=== PATIENT | male | born 1990 ===

== ENCOUNTER 2024-05-16 13:14 | Inpatient (IN) | payer OTHER ==
[~2024-05-16] VITALS: Ht 160 cm; Wt 72.7 kg
[2024-05-16 15:26] LABS: BASOPHILS % (AUTO) 0.2 % (0.0-2.0); EOSINOPHILS % (AUTO) 0.1 % (1.0-6.0); HEMATOCRIT 43.5 % (41-53); HEMOGLOBIN 14.7 g/dL (13.5-17.5); LYMPHOCYTES # (AUTO) 2.1 K/uL (1.0-4.8); LYMPHOCYTES % (AUTO) 22.4 % (22.0-44.0); MEAN CORPUSCULAR HEMOGLOBIN 27.1 pg (26.0-34.0); MEAN CORPUSCULAR HGB CONC 33.9 G/dL (31.0-37.0); MEAN CORPUSCULAR VOLUME 80 fL (80-100); MONOCYTES # (AUTO) 0.8 K/uL (0.1-1.0); MONOCYTES % (AUTO) 8.8 % (2.0-9.0); NEUTROPHILS # (AUTO) 6.3 K/uL (1.8-7.7); NEUTROPHILS % (AUTO) 68.5 % (40.0-70.0); PLATELET COUNT (AUTO) 374 K/uL (150-450); RED BLOOD CELL COUNT(AUTO) 5.44 MIL/uL (4.50-5.90); RED CELL DISTRIBUTION WIDTH 16.2 % (11.5-14.5); WHITE BLOOD COUNT (AUTO) 9.3 K/uL (4.5-11.0)
[2024-05-16 15:28] LABS: ANION GAP 10 mmol/L (8-16); CALCIUM, TOTAL 9.5 mg/dL (8.8-10.5); CARBON DIOXIDE 27 mmol/L (22-29); CHLORIDE 100 mmol/L (98-107); CREATININE 0.71 mg/dL (0.60-1.30); GLOMERULAR FILTR. RATE CALC > 60 mL/min (>60); GLUCOSE,RANDOM 96 mg/dL (70-110); POTASSIUM 3.3 mmol/L (3.5-5.1); SODIUM SERUM 137 mmol/L (136-145); UREA NITROGEN, BLOOD 7 mg/dL (7-18)
[2024-05-16 15:37] LABS: LACTIC ACID 0.9 mmol/L (0.4-2.0)
[2024-05-16] MEDS: VANCOMYCIN 1.25 GM/WATER(PEG) 250 ML IV ONE (15:50)
[2024-05-16] MEDS ORDERED: MAGNESIUM HYDROXIDE SUSPENSION 30 ML UDCUP PO PRN (16:30)
[2024-05-16] MEDS ORDERED: ONDANSETRON HCL 4 MG/2 ML VIAL IVP PRN (16:30)
[2024-05-16] MEDS ORDERED: BISACODYL 10 MG RECTAL RECTAL SUPPOSITORY PR PRN (16:30)
[2024-05-16] MEDS: MORPHINE SULFATE 2 MG/ML SYRINGE IVP PRN (16:40)
[2024-05-16 18:40] VITALS: BP 109/72; PULSE 77; RESP 18; TEMP 98.4; O2SAT 100
[2024-05-16 20:04] VITALS: BP 117/67; PULSE 72; RESP 20; TEMP 97.9; O2SAT 96
[2024-05-16] MEDS: HYDROCODONE/ACETAMINOPHEN 5-325 MG TABLET PO PRN (20:13)
[2024-05-16] MEDS: DOCUSATE SODIUM 100 MG CAPSULE PO SCH (20:13)
[2024-05-16] MEDS ORDERED: SODIUM CHLORIDE 0.9% 500 ML IV ONE (23:30)
[2024-05-16] MEDS: HEPARIN SODIUM,PORCINE 5,000 UNITS/ML VIAL SQ SCH (23:38)
[2024-05-16] MEDS: VANCOMYCIN 1GM/WATER(PEG/NADA) 200 ML IV SCH (23:38)
[2024-05-17 05:27] VITALS: BP 101/56; PULSE 84; RESP 18; TEMP 97.5; O2SAT 100
[2024-05-17 08:13] VITALS: BP 107/60; PULSE 83; RESP 18; TEMP 98.2; O2SAT 99
[2024-05-17 08:24] LABS: ANION GAP 9 mmol/L (8-16); CALCIUM, TOTAL 9.3 mg/dL (8.8-10.5); CARBON DIOXIDE 24 mmol/L (22-29); CHLORIDE 102 mmol/L (98-107); CREATININE 0.72 mg/dL (0.60-1.30); GLOMERULAR FILTR. RATE CALC > 60 mL/min (>60); GLUCOSE,RANDOM 112 mg/dL (70-110); POTASSIUM 3.4 mmol/L (3.5-5.1); SODIUM SERUM 135 mmol/L (136-145); UREA NITROGEN, BLOOD 8 mg/dL (7-18)
[2024-05-17] MEDS: PANTOPRAZOLE SODIUM 40 MG DR TABLET PO SCH (08:32)
[2024-05-17] MEDS ORDERED: POTASSIUM CHL 10 MEQ/WATER 50 ML IV PRN (11:15)
[2024-05-17] MEDS: POTASSIUM CHLORIDE 20 MEQ ER TABLET PO PRN (13:02)
[2024-05-17 16:00] VITALS: BP 127/70; PULSE 67; RESP 18; TEMP 98.5; O2SAT 99
[2024-05-17 20:23] VITALS: BP 103/59; PULSE 61; RESP 18; TEMP 98.2; O2SAT 98
[2024-05-18 05:13] VITALS: BP 108/61; PULSE 77; RESP 18; TEMP 98.1; O2SAT 99
[2024-05-18 07:25] LABS: ANION GAP 11 mmol/L (8-16); CARBON DIOXIDE 22 mmol/L (22-29); CHLORIDE 101 mmol/L (98-107); CREATININE 0.73 mg/dL (0.60-1.30); GLOMERULAR FILTR. RATE CALC > 60 mL/min (>60); GLUCOSE,RANDOM 148 mg/dL (70-110); POTASSIUM 3.2 mmol/L (3.5-5.1); SODIUM SERUM 134 mmol/L (136-145); UREA NITROGEN, BLOOD 6 mg/dL (7-18); VANCOMYCIN,RANDOM 12.6 mcg/mL (25.0-50.0)
[2024-05-18 08:29] VITALS: BP 105/56; PULSE 81; RESP 18; TEMP 97.9; O2SAT 99
[2024-05-18 16:10] VITALS: BP 95/43; PULSE 65; RESP 18; TEMP 97.5; O2SAT 98
[2024-05-18] MEDS: VANCOMYCIN 1.25 GM/WATER(PEG) 250 ML IV SCH (16:17)
[2024-05-18 21:20] VITALS: BP 113/57; PULSE 65; RESP 18; TEMP 98.6; O2SAT 98
[2024-05-18] MEDS: ZOLPIDEM TARTRATE 5 MG TABLET PO PRN (23:42)
[2024-05-18] MEDS: ACETAMINOPHEN 325 MG TABLET PO PRN (23:43)
[2024-05-19 06:16] VITALS: BP 102/57; PULSE 71; RESP 18; TEMP 98.3; O2SAT 100
[2024-05-19 07:30] LABS: ANION GAP 9 mmol/L (8-16); CALCIUM, TOTAL 9.1 mg/dL (8.8-10.5); CARBON DIOXIDE 24 mmol/L (22-29); CHLORIDE 101 mmol/L (98-107); CREATININE 0.54 mg/dL (0.60-1.30); GLOMERULAR FILTR. RATE CALC > 60 mL/min (>60); GLUCOSE,RANDOM 93 mg/dL (70-110); POTASSIUM 3.7 mmol/L (3.5-5.1); SODIUM SERUM 134 mmol/L (136-145); UREA NITROGEN, BLOOD 6 mg/dL (7-18)
[2024-05-19 20:25] VITALS: BP 101/57; PULSE 74; RESP 18; TEMP 98.4; O2SAT 97
[2024-05-20 07:34] LABS: ANION GAP 10 mmol/L (8-16); CALCIUM, TOTAL 9.1 mg/dL (8.8-10.5); CARBON DIOXIDE 24 mmol/L (22-29); CHLORIDE 100 mmol/L (98-107); CREATININE 0.63 mg/dL (0.60-1.30); GLOMERULAR FILTR. RATE CALC > 60 mL/min (>60); GLUCOSE,RANDOM 93 mg/dL (70-110); POTASSIUM 3.8 mmol/L (3.5-5.1); SODIUM SERUM 134 mmol/L (136-145); UREA NITROGEN, BLOOD 7 mg/dL (7-18)
[2024-05-20 08:35] VITALS: BP 109/62; PULSE 72; RESP 20; TEMP 98.2; O2SAT 99
[2024-05-20] MEDS ORDERED: SODIUM CL IRRIG SOLN BOTTLE 250 ML IRRIG ONE (16:45)
[2024-05-20 20:09] VITALS: BP 129/62; PULSE 62; RESP 18; TEMP 97.9; O2SAT 96
[2024-05-21 04:30] VITALS: BP 108/60; PULSE 79; RESP 18; TEMP 98; O2SAT 98
[2024-05-21 07:37] VITALS: BP 121/68; PULSE 84; RESP 18; TEMP 98.1; O2SAT 99
[2024-05-21 09:37] LABS: CALCIUM, TOTAL 9.3 mg/dL (8.8-10.5); CARBON DIOXIDE 25 mmol/L (22-29); CHLORIDE 101 mmol/L (98-107); CREATININE 0.71 mg/dL (0.60-1.30); GLOMERULAR FILTR. RATE CALC > 60 mL/min (>60); GLUCOSE,RANDOM 93 mg/dL (70-110); UREA NITROGEN, BLOOD 9 mg/dL (7-18); VANCOMYCIN,RANDOM 14.3 mcg/mL (25.0-50.0)
[2024-05-21 09:41] LABS: ANION GAP 9 mmol/L (8-16); POTASSIUM 3.7 mmol/L (3.5-5.1); SODIUM SERUM 135 mmol/L (136-145)
[2024-05-21] MEDS: HydrOXYzine HCL 25 MG TABLET PO PRN ×2 (12:44→23:26)
[2024-05-21] MEDS: VANCOMYCIN 1GM/WATER(PEG/NADA) 200 ML IV SCH (16:21)
[2024-05-21 21:02] VITALS: BP 98/50; PULSE 81; RESP 16; TEMP 98; O2SAT 99
[2024-05-21 23:29] VITALS: BP 119/73; PULSE 85; RESP 18; TEMP 97.8; O2SAT 99
[2024-05-22 08:01] VITALS: BP 130/70; PULSE 90; RESP 18; TEMP 98.2; O2SAT 100
[2024-05-22 08:20] LABS: ANION GAP 8 mmol/L (8-16); CALCIUM, TOTAL 9.1 mg/dL (8.8-10.5); CARBON DIOXIDE 25 mmol/L (22-29); CHLORIDE 100 mmol/L (98-107); GLOMERULAR FILTR. RATE CALC > 60 mL/min (>60); GLUCOSE,RANDOM 88 mg/dL (70-110); POTASSIUM 3.8 mmol/L (3.5-5.1); SODIUM SERUM 133 mmol/L (136-145); UREA NITROGEN, BLOOD 8 mg/dL (7-18)
[2024-05-22] MEDS ORDERED: ETHYL ALCOHOL 62% ANTISEPTIC NASAL SANITIZER 0.6 ML AMPUL NASAL SCH (14:30)
[2024-05-22] MEDS ORDERED: SODIUM CHLORIDE 0.9% 500 ML IV ONE (17:13)
[2024-05-22 19:47] VITALS: BP 109/60; PULSE 83; RESP 20; TEMP 98.6; O2SAT 97
[2024-05-22] MEDS: ZOLPIDEM TARTRATE 10 MG TABLET PO PRN (21:05)
[2024-05-23 05:12] VITALS: BP 97/58; PULSE 95; RESP 18; TEMP 98.8; O2SAT 97
[2024-05-23 08:04] LABS: ANION GAP 7 mmol/L (8-16); CARBON DIOXIDE 25 mmol/L (22-29); CHLORIDE 101 mmol/L (98-107); CREATININE 0.57 mg/dL (0.60-1.30); GLOMERULAR FILTR. RATE CALC > 60 mL/min (>60); GLUCOSE,RANDOM 99 mg/dL (70-110); POTASSIUM 3.8 mmol/L (3.5-5.1); SODIUM SERUM 133 mmol/L (136-145); UREA NITROGEN, BLOOD 10 mg/dL (7-18)
[2024-05-23 08:54] VITALS: BP 100/59; PULSE 81; RESP 20; TEMP 98.4; O2SAT 99
[2024-05-23 19:44] VITALS: BP 109/53; PULSE 83; RESP 20; TEMP 98.3; O2SAT 98
[2024-05-24 05:15] VITALS: BP 108/64; PULSE 77; RESP 19; TEMP 97.5; O2SAT 96
[2024-05-24 07:44] LABS: ANION GAP 9 mmol/L (8-16); CALCIUM, TOTAL 8.9 mg/dL (8.8-10.5); CARBON DIOXIDE 25 mmol/L (22-29); CHLORIDE 101 mmol/L (98-107); CREATININE 0.62 mg/dL (0.60-1.30); GLOMERULAR FILTR. RATE CALC > 60 mL/min (>60); GLUCOSE,RANDOM 89 mg/dL (70-110); POTASSIUM 3.6 mmol/L (3.5-5.1); SODIUM SERUM 135 mmol/L (136-145); UREA NITROGEN, BLOOD 9 mg/dL (7-18); VANCOMYCIN,RANDOM 16.7 mcg/mL (25.0-50.0)
[2024-05-24 07:59] VITALS: BP 124/65; PULSE 85; RESP 18; TEMP 98.1; O2SAT 97
[2024-05-24] MEDS ORDERED: HEPA500018 SQ (18:12)
[2024-05-24] MEDS ORDERED: MAGN-169 PO (18:12)
[2024-05-24] MEDS ORDERED: HYDR-4062 PO (18:12)
[2024-05-24] MEDS ORDERED: ACET-2247 PO (18:12)
[2024-05-24] MEDS ORDERED: MORP2CAR IVP (18:12)
[2024-05-24] MEDS ORDERED: VANC250C20 IV (18:12)
[2024-05-24] MEDS ORDERED: BISA10SU11 PR (18:12)
[2024-05-24] MEDS ORDERED: DOCU-119 PO (18:12)
[2024-05-24] MEDS ORDERED: PANT-31 PO (18:12)
[2024-05-24] MEDS ORDERED: ONDA4VIA60 IVP (18:12)
[2024-05-24] MEDS ORDERED: HYDR-4527 PO (18:12)
== END 2024-05-24 19:09 | DRG 603 ==
LOC: EMS 13:14 → EDH 16:18 → 6S 18:32
PROVIDERS: ADMIT Internal Medicine; ATTEND Internal Medicine
PROC: 05HB33Z Insertion of Infusion Device into Right Basilic Vein, Percutaneous Approach (ICD-10-PCS; principal; 2024-05-20)
PROC: B54MZZA Ultrasonography of Right Upper Extremity Veins, Guidance (ICD-10-PCS; 2024-05-20)
DX: L03.115 Cellulitis of right lower limb (principal); L03.116 Cellulitis of left lower limb; E87.6 Hypokalemia; S81.802A Unspecified open wound, left lower leg, initial encounter; S81.801A Unspecified open wound, right lower leg, initial encounter; X58.XXXA Exposure to other specified factors, initial encounter; M24.574 Contracture, right foot; M24.575 Contracture, left foot; Z88.0 Allergy status to penicillin; Y93.89 Activity, other specified; Y92.89 Other specified places as the place of occurrence of the external cause; Y99.8 Other external cause status
CPT/HCPCS: 36245; 36569; 76937; 80048; 80202; 83605; 84132; 85025; 87040; 87070; 87186; 87205; 99285; J1644; J2270; J7040